=== PATIENT | male | born 1960 | race Caucasian/White ===

== ENCOUNTER 2017-10-23 07:38 | Day surgery (SDC) | payer MEDICARE, MEDICAID ==
[2017-10-23] MEDS ORDERED: Lactated Ringers 1,000 ML IV SCH (07:45)
[2017-10-23] MEDS ORDERED: Propofol 200 MG/20 ML SDV IV ONE (09:00)
[2017-10-23] MEDS ORDERED: fentaNYL 100 MCG/2 ML SDV IV ONE (09:00)
[2017-10-23] MEDS ORDERED: Midazolam 1 MG/ML 2 ML SDV IV ONE (09:00)
--- NOTE | 2017-10-23 09:43 | PCM.OPNOTE ---
- General Post-Op/Procedure Note Date of Surgery/Procedure: 10/23/17 Operative Procedure(s): c scope Findings: sigmoid diverticulosis Pre Op Diagnosis: fecal smearing Post-Op Diagnosis: sigmoid diverticulosis Anesthesia Technique: MAC Primary Surgeon: Sergo Luis Anesthesia Provider: Gray Blevins Pathology: none Complications: None Condition: Good Free Text/Narrative:: see dictation
[2017-10-23 10:45] VITALS: BP 127/74
--- NOTE | 2017-10-23 15:57 | OR ---
DATE OF OPERATION: 10/23/2017 SURGEON: Sergo Luis MD PROCEDURE PERFORMED: Colonoscopy. PREOPERATIVE DIAGNOSIS: Fecal smearing. POSTOPERATIVE DIAGNOSIS: Sigmoid diverticulosis. INDICATIONS FOR PROCEDURE: This is a 57-year-old white male who is referred with the above-mentioned complaints. He was offered and accepted colonoscopy. DESCRIPTION OF PROCEDURE: After an excellent IV sedation was administered, digital rectal exam was performed. No marked abnormality was noted. Flexible colonoscope was inserted and advanced to the cecum without difficulty. The prep was excellent. The following findings were noted. Ascending colon, unremarkable. Transverse colon, unremarkable. Descending colon, unremarkable. Sigmoid, scattered diverticulosis. Rectum and anus, unremarkable. Colon was deflated as the scope was removed. My plan is to increase fiber in his diet for one month and see how it goes. If this issue persists, we will consider anal manometry. /[id number] /MODL
== END 2017-10-23 10:47 | disposition home or self-care (01) ==
LOC: FB.SDS 07:38
PROVIDERS: ATTEND Surgery
DX: K57.30 Diverticulosis of large intestine without perforation or abscess without bleeding (principal); H81.10 Benign paroxysmal vertigo, unspecified ear; F33.0 Major depressive disorder, recurrent, mild; F41.1 Generalized anxiety disorder; N40.1 Benign prostatic hyperplasia with lower urinary tract symptoms; R35.0 Frequency of micturition; Z87.891 Personal history of nicotine dependence; Z79.899 Other long term (current) drug therapy
CPT/HCPCS: 00812; 36415; 45378; 84132; J2250; J2704; J3010; J7120

== ENCOUNTER 2018-05-13 08:38 | Day surgery (SDC) | payer MEDICARE, MEDICAID ==
[~2018-05-13 08:38] MED LIST: Lactated Ringers 1,000 ML IV SCH
--- NOTE | 2018-05-13 09:33 | PCM.OPNOTE ---
- General Post-Op/Procedure Note Date of Surgery/Procedure: 05/13/18 Operative Procedure(s): c scope with bx Findings: ascending colon polyp int hemorrhoids Pre Op Diagnosis: hx of bleeding per rectum. thrombosed hemorrhoid Post-Op Diagnosis: ascending colon polyp. int hemorrhoids Anesthesia Technique: MAC Primary Surgeon: Sergo Luis Anesthesia Provider: Gray Blevins Pathology: ascending colon polyp Complications: none Condition: Good Free Text/Narrative:: see dictation
[2018-05-13] MEDS ORDERED: Propofol 200 MG/20 ML SDV IV ONE (10:00)
--- NOTE | 2018-05-13 10:20 | PCM.OPNOTE ---
- General Post-Op/Procedure Note Date of Surgery/Procedure: 05/13/18 Operative Procedure(s): egd with bx Findings: gastroduodenitis esophagitis Pre Op Diagnosis: epigastric abd pain Post-Op Diagnosis: gastroduodenitis. esophagitis Anesthesia Technique: [facility] [place] Primary Surgeon: Sergo Luis Anesthesia Provider: Gray Blevins Pathology: stomach duodenum and esophagus Complications: None Condition: Good Free Text/Narrative:: see dictation
[2018-05-13 11:50] VITALS: BP 111/71
--- NOTE | 2018-05-13 14:46 | OR ---
DATE OF OPERATION: 05/13/2018 SURGEON: Sergo Luis MD PROCEDURES PERFORMED: Upper endoscopy. PREOPERATIVE DIAGNOSIS: Epigastric abdominal pain. POSTOPERATIVE DIAGNOSES: Esophagitis and gastric duodenitis. INDICATIONS FOR PROCEDURE: This is a 58-year-old white male referred with a history of epigastric abdominal pain. He was offered and accepted an EGD as part of his workup. DESCRIPTION OF PROCEDURE: After an excellent IV sedation was administered, the bite block was inserted. Flexible endoscope was passed without difficulty down the patient's esophagus into the stomach. Stomach was insufflated, scope was passed through the pylorus to the second portion of the duodenum, and slowly withdrawn. The following findings were noted: In the first portion of the duodenum, some mild inflammation. Biopsies were taken. Stomach, diffuse gastritis, biopsies were taken. Distal esophagus, GE junction measured at 45 cm, was irregular suggestive of possible Ellis's. Circumferential biopsies were taken as well. Mild erythema was noted in the distal esophagus as well. The remainder of the exam was unremarkable. Stomach was deflated. Scope was removed. Patient tolerated the procedure well and was taken to recovery in good condition. He will follow up with me in about a week. /[id number] /MODL
== END 2018-05-13 11:30 | disposition home or self-care (01) ==
LOC: FB.SDS 08:38
PROVIDERS: ATTEND Surgery
DX: K29.50 Unspecified chronic gastritis without bleeding (principal); B96.81 Helicobacter pylori [H. pylori] as the cause of diseases classified elsewhere; K22.70 Barrett's esophagus without dysplasia; K29.80 Duodenitis without bleeding; I10 Essential (primary) hypertension; F17.220 Nicotine dependence, chewing tobacco, uncomplicated; F33.0 Major depressive disorder, recurrent, mild; Z79.899 Other long term (current) drug therapy
CPT/HCPCS: 00731-QZ; 88305; 88313; 88342; J2704; J7120